=== PATIENT | male | born 1965 | race Caucasian/White ===

== ENCOUNTER → 2019-05-04 | Outpatient (CLI) | payer SELFPAY ==
[~2019-05-04] MED LIST: ACYC-114 PO; ATOR40TA78 PO; FENO160T PO; LISI1TAB20 PO; METH750T2 PO; TRAM50TA2 PO
[2019-05-04 10:19] LABS: BASOPHILS # (AUTO) 0.03 x10^3/uL (0-0.1); BASOPHILS % (AUTO) 0 % (0-1); EOSINOPHILS # (AUTO) 0.28 x10^3/uL (0-0.4); EOSINOPHILS % (AUTO) 4 % (1-7); LYMPHOCYTES # (AUTO) 2.38 x10^3/uL (1-3.4); LYMPHOCYTES % (AUTO) 32 % (22-44); MD NO; MEAN CORPUSCULAR HEMOGLOBIN 32.1 pg (27.5-34.5); MEAN CORPUSCULAR HGB CONC 34.1 g/dL (33.2-36.2); MEAN CORPUSCULAR VOLUME 94.1 fL (81-97); MEAN PLATELET VOLUME 9.1 fL (7.4-10.4); MONOCYTES # (AUTO) 0.57 x10^3/uL (0.2-0.8); MONOCYTES % (AUTO) 8 % (2-9); NEUTROPHILS % (AUTO) 56 % (42-75); PLATELET COUNT 255 x10^3/uL (130-400); RED BLOOD COUNT 4.62 x10^6/uL (4.38-5.82)
[2019-05-04 10:20] LABS: MICROSCOPIC NOT IND
[2019-05-04 10:24] LABS: ANION GAP 5 mmol/L (5-15); CALCIUM 8.9 mg/dL (8.5-10.1); CHLORIDE 109 mmol/L (98-107)
[2019-05-04 10:27] LABS: ALANINE AMINOTRANSFERASE 53 U/L (12-78); ALKALINE PHOSPHATASE 60 U/L (45-117); BILIRUBIN,TOTAL 0.4 mg/dL (0.2-1.0); CREATININE 2.26 mg/dL (0.7-1.3); TOTAL PROTEIN 7.8 g/dL (6.4-8.2)
[2019-05-04 10:27] LABS: CULTURE INDICATED? NO
[2019-05-04 10:50] LABS: INTERNATIONAL NORMALIZED RATIO 0.99 (0.93-1.1); PROTHROMBIN TIME 10.5 Seconds (9.6-11.5)
== END | disposition home or self-care (01) ==
LOC: STAR 09:05
PROVIDERS: ATTEND Neurological Surgery
DX: Z01.818 Encounter for other preprocedural examination (principal); Z01.811 Encounter for preprocedural respiratory examination; Z01.812 Encounter for preprocedural laboratory examination; S33.39XA Dislocation of other parts of lumbar spine and pelvis, initial encounter; M43.06 Spondylolysis, lumbar region; X58.XXXA Exposure to other specified factors, initial encounter; Y93.89 Activity, other specified; Y92.89 Other specified places as the place of occurrence of the external cause; Y99.8 Other external cause status
CPT/HCPCS: 36415; 71046; 72110; 80053; 81003; 85025; 85610; 85730; 93005

== ENCOUNTER 2019-05-12 06:54 | Inpatient (IN) | payer OTHER ==
[~2019-05-12] VITALS: Ht 180.3 cm; Wt 102.5 kg
[~2019-05-12 06:54] MED LIST changes: +BACITRACIN 50,000 UNIT ONE; +THROMBIN 5,000 UNIT VIAL TP ONE
[2019-05-12] MEDS ORDERED: LACTATED RINGERS 1,000 ML IV SCH (07:29)
[2019-05-12] MEDS ORDERED: ACETAMINOPHEN 500 MG TABLET PO ONE (07:30)
[2019-05-12] MEDS ORDERED: OXYcodone IR 5MG TABLET PO ONE (07:30)
[2019-05-12 08:04] LABS: ANION GAP 6 mmol/L (5-15); CHLORIDE 108 mmol/L (98-107); CREATININE 1.75 mg/dL (0.7-1.3)
[2019-05-12] MEDS ORDERED: PROPOFOL 10 MG/ML, 20ML ONE (08:14)
[2019-05-12] MEDS ORDERED: FENTANYL PF 250 MCG/5ML ONE (08:14)
[2019-05-12] MEDS ORDERED: MIDAZOLAM 1 MG/ML, 2ML ONE (08:14)
[2019-05-12] MEDS ORDERED: ROCURONIUM 10MG/ML,5ML ONE (08:14)
[2019-05-12] MEDS ORDERED: PROPOFOL 50 ML ONE ×2 (08:14→10:08)
[2019-05-12] MEDS ORDERED: CEFAZOLIN 1,000 MG ONE ×2 (08:14)
[2019-05-12] MEDS ORDERED: LIDOCAINE-MPF 2% ,5ML ONE ×2 (08:15)
[2019-05-12] MEDS ORDERED: DEXAMETHASONE 4 MG/ML, 1ML ONE ×2 (08:15)
[2019-05-12] MEDS ORDERED: ONDANSETRON 2MG/ML, 2ML ONE (08:15)
[2019-05-12] MEDS ORDERED: ONDANSETRON 2MG/ML, 2ML IV PRN (08:30)
[2019-05-12] MEDS ORDERED: LORazepam 2 MG/ML, 1ML IVPush PRN (08:30)
[2019-05-12] MEDS ORDERED: OXYcodone 5 MG/5 ML ORAL.SOL UDC PO PRN (08:30)
[2019-05-12] MEDS ORDERED: LABETALOL 5MG/ML, 20ML IV PRN ×2 (08:30→14:00)
[2019-05-12] MEDS ORDERED: hydrALAzine 20 MG/ML, 1ML IV PRN (08:30)
[2019-05-12] MEDS ORDERED: FENTANYL PF 100 MCG/2ML ONE (11:00)
[2019-05-12] MEDS ORDERED: OXYcodone 5 MG/5 ML ORAL.SOL UDC ONE (11:00)
[2019-05-12] MEDS ORDERED: HYDROmorphone 1 MG/ML, 1ML INJ ONE ×3 (11:00→11:52)
[2019-05-12] MEDS: FENTANYL PF 100 MCG/2ML IV PRN ×2 (11:01→11:10)
[2019-05-12] MEDS ORDERED: GLYCOPYRROLATE 0.2MG/1ML, 5ML ONE (11:03)
[2019-05-12] MEDS ORDERED: NEOSTIGMINE 1 MG/ML, 10ML ONE (11:03)
[2019-05-12] MEDS: HYDROmorphone 2 MG/ML, 1ML IVPush PRN ×6 (11:15→12:00)
[2019-05-12] MEDS ORDERED: METHOCARBAMOL 1,000 MG in DEXTROSE 5% 100 ML IV ONE (11:30)
[2019-05-12] MEDS ORDERED: MAGNESIUM HYDROXIDE 8%, 30ML UDC PO PRN (14:00)
[2019-05-12] MEDS ORDERED: METOCLOPRAMIDE 5 MG/ML, 2ML IV ONE (14:00)
[2019-05-12] MEDS ORDERED: BISACODYL 10 MG SUPP PR PRN (14:00)
[2019-05-12] MEDS ORDERED: DIPHENHYDRAMINE 25 MG CAPSULE PO PRN (14:00)
[2019-05-12] MEDS ORDERED: DIPHENHYDRAMINE 50 MG/ML, 1ML IVPush PRN (14:00)
[2019-05-12] MEDS: HYDROcodone/APAP 5/325 TABLET PO PRN (15:22)
[2019-05-12 15:26] VITALS: BP 111/79
[2019-05-12] MEDS: D5%-0.9% NACL+KCL 20MEQ 1,000 ML IV SCH (17:40)
[2019-05-12] MEDS: CEFAZOLIN PMX 1GM/50ML 50 ML IVPB SCH (17:40)
[2019-05-12 19:44] VITALS: BP 107/70
[2019-05-12] MEDS ORDERED: METOCLOPRAMIDE 5 MG/ML, 2ML IVPush ONE (20:00)
[2019-05-12] MEDS: ATORVASTATIN 40 MG TABLET PO SCH (20:09)
[2019-05-12] MEDS: ACYCLOVIR 400 MG TABLET PO SCH (20:09)
[2019-05-12] MEDS: FAMOTIDINE 20 MG TABLET PO SCH (20:10)
[2019-05-12] MEDS: OXYcodone IR 5MG TABLET PO PRN (20:12)
[2019-05-13 00:10] VITALS: BP 115/71
[2019-05-13] MEDS: CEFAZOLIN PMX 1GM/50ML 50 ML IVPB SCH ×2 (00:51→20:25)
[2019-05-13] MEDS: OXYcodone IR 5MG TABLET PO PRN ×3 (00:51→20:10)
[2019-05-13] MEDS: HYDROcodone/APAP 5/325 TABLET PO PRN (04:38)
[2019-05-13 05:39] LABS: CHLORIDE 110 mmol/L (98-107)
[2019-05-13 05:45] LABS: BASOPHILS # (AUTO) 0.03 x10^3/uL (0-0.1); BASOPHILS % (AUTO) 0 % (0-1); EOSINOPHILS # (AUTO) 0.02 x10^3/uL (0-0.4); EOSINOPHILS % (AUTO) 0 % (1-7); LYMPHOCYTES # (AUTO) 1.72 x10^3/uL (1-3.4); LYMPHOCYTES % (AUTO) 15 % (22-44); MD NO; MEAN CORPUSCULAR HEMOGLOBIN 31.9 pg (27.5-34.5); MEAN CORPUSCULAR HGB CONC 34.1 g/dL (33.2-36.2); MEAN CORPUSCULAR VOLUME 93.3 fL (81-97); MEAN PLATELET VOLUME 9.2 fL (7.4-10.4); MONOCYTES # (AUTO) 1.02 x10^3/uL (0.2-0.8); MONOCYTES % (AUTO) 9 % (2-9); NEUTROPHILS # (AUTO) 8.38 x10^3/uL (1.8-6.8); NEUTROPHILS % (AUTO) 75 % (42-75); PLATELET COUNT 229 x10^3/uL (130-400); RED BLOOD COUNT 4.04 x10^6/uL (4.38-5.82); RED CELL DISTRIBUTION WIDTH 11.9 % (9.4-14.8)
[2019-05-13 05:59] LABS: ANION GAP 7 mmol/L (5-15); CALCIUM 8.9 mg/dL (8.5-10.1); CREATININE 1.41 mg/dL (0.7-1.3)
[2019-05-13] MEDS ORDERED: BUPIVACAINE/PF-EPI 0.5% 1:200K ONE ×2 (06:01→13:48)
[2019-05-13] MEDS ORDERED: THROMBIN 5,000 UNIT VIAL TP ONE (06:01)
[2019-05-13] MEDS ORDERED: BACITRACIN 50,000 UNIT ONE (06:01)
[2019-05-13] MEDS ORDERED: VANCOMYCIN 1,000 MG ONE (06:01)
[2019-05-13] MEDS: D5%-0.9% NACL+KCL 20MEQ 1,000 ML IV SCH ×3 (06:40→23:20)
[2019-05-13 08:15] VITALS: BP 106/57
[2019-05-13] MEDS: FAMOTIDINE 20 MG TABLET PO SCH ×2 (09:00→20:10)
[2019-05-13] MEDS: ACYCLOVIR 400 MG TABLET PO SCH ×2 (09:00→20:09)
[2019-05-13] MEDS ORDERED: MIDAZOLAM 1 MG/ML, 2ML ONE (12:08)
[2019-05-13] MEDS ORDERED: FENTANYL PF 250 MCG/5ML ONE (12:09)
[2019-05-13] MEDS ORDERED: BUPIVACAINE LIPOSOME/PF 20ML INFIL ONE (13:22)
[2019-05-13] MEDS ORDERED: ROCURONIUM 10MG/ML,5ML ONE (13:32)
[2019-05-13] MEDS ORDERED: SUCCINYLCHOLINE 20 MG/ML, 10ML ONE (13:32)
[2019-05-13] MEDS ORDERED: PROPOFOL 10 MG/ML, 20ML ONE (13:32)
[2019-05-13] MEDS ORDERED: ONDANSETRON 2MG/ML, 2ML ONE (13:32)
[2019-05-13] MEDS ORDERED: DEXAMETHASONE 4 MG/ML, 1ML ONE (13:32)
[2019-05-13] MEDS ORDERED: ONDANSETRON 2MG/ML, 2ML IVPush PRN (14:30)
[2019-05-13] MEDS ORDERED: PROMETHAZINE 25 MG/ML, 1ML IV PRN (14:30)
[2019-05-13] MEDS ORDERED: ALBUTEROL SULFATE 2.5 MG/3 ML NPPB PRN (14:30)
[2019-05-13] MEDS ORDERED: KETOROLAC 30 MG/1 ML IV PRN (14:30)
[2019-05-13] MEDS ORDERED: OXYcodone 5 MG/5 ML ORAL.SOL UDC PO PRN (14:30)
[2019-05-13] MEDS ORDERED: LABETALOL 5MG/ML, 20ML IV PRN (14:30)
[2019-05-13] MEDS ORDERED: hydrALAzine 20 MG/ML, 1ML IV PRN (14:30)
[2019-05-13] MEDS ORDERED: MEPERIDINE/PF 25MG/0.5ML IVPush PRN (14:30)
[2019-05-13] MEDS ORDERED: DIAZEPAM 5 MG/ML, 2ML IV PRN ×2 (14:30)
[2019-05-13] MEDS ORDERED: FENTANYL PF 100 MCG/2ML ONE (15:47)
[2019-05-13] MEDS ORDERED: HYDROmorphone 1 MG/ML, 1ML INJ ONE ×2 (15:48→16:21)
[2019-05-13] MEDS: FENTANYL PF 100 MCG/2ML IV PRN ×2 (15:48→16:00)
[2019-05-13] MEDS ORDERED: OXYcodone 5 MG/5 ML ORAL.SOL UDC ONE (16:03)
[2019-05-13] MEDS: HYDROmorphone 1 MG/ML, 1ML INJ IV PRN ×3 (16:10→16:35)
[2019-05-13] MEDS ORDERED: DIAZEPAM 5 MG/ML, 2ML ONE (16:21)
[2019-05-13 17:05] VITALS: BP 123/83
[2019-05-13] MEDS: morphine SULFATE 10 MG/ML, 1ML IV PRN (17:27)
[2019-05-13] MEDS: LISINOPRIL 20 MG TABLET PO SCH (20:09)
[2019-05-13] MEDS: FENOFIBRATE 145 MG TABLET PO SCH (20:10)
[2019-05-13] MEDS: SENNA/DOCUSATE TABLET PO SCH (20:10)
[2019-05-13] MEDS: ATORVASTATIN 40 MG TABLET PO SCH (20:14)
[2019-05-13] MEDS: ACETAMINOPHEN 325 MG TABLET PO PRN (20:14)
[2019-05-13 20:44] VITALS: BP 139/81
[2019-05-13] MEDS: HYDROCHLOROTHIAZIDE 25 MG TABLET PO SCH (21:00)
[2019-05-14] VITALS: BP 110/60
[2019-05-14] MEDS: ACETAMINOPHEN 325 MG TABLET PO PRN ×3 (00:20→21:48)
[2019-05-14] MEDS: OXYcodone IR 5MG TABLET PO PRN ×6 (00:21→21:44)
[2019-05-14] MEDS: D5%-0.9% NACL+KCL 20MEQ 1,000 ML IV SCH ×3 (00:22→16:00)
[2019-05-14] MEDS: CEFAZOLIN PMX 1GM/50ML 50 ML IVPB SCH (04:08)
[2019-05-14 04:13] VITALS: BP 118/75
[2019-05-14 06:47] VITALS: BP 131/79
[2019-05-14] MEDS: ACYCLOVIR 400 MG TABLET PO SCH ×2 (08:22→20:47)
[2019-05-14] MEDS: LISINOPRIL 20 MG TABLET PO SCH (08:23)
[2019-05-14] MEDS: SENNA/DOCUSATE TABLET PO SCH (08:23)
[2019-05-14] MEDS: HYDROCHLOROTHIAZIDE 25 MG TABLET PO SCH (08:23)
[2019-05-14] MEDS: FAMOTIDINE 20 MG TABLET PO SCH ×2 (08:23→20:47)
[2019-05-14] MEDS: FENOFIBRATE 145 MG TABLET PO SCH (08:30)
[2019-05-14] MEDS: ONDANSETRON 2MG/ML, 2ML IV PRN ×2 (11:54→19:22)
[2019-05-14 13:52] VITALS: BP 108/64
[2019-05-14] MEDS: morphine SULFATE 10 MG/ML, 1ML IV PRN ×2 (15:28→19:22)
[2019-05-14 20:30] VITALS: BP 107/72
[2019-05-14] MEDS: ATORVASTATIN 40 MG TABLET PO SCH (20:47)
[2019-05-15] MEDS: morphine SULFATE 10 MG/ML, 1ML IV PRN ×2 (00:09→04:48)
[2019-05-15 00:14] VITALS: BP 105/68
[2019-05-15] MEDS: D5%-0.9% NACL+KCL 20MEQ 1,000 ML IV SCH ×3 (00:20→15:39)
[2019-05-15] MEDS: OXYcodone IR 5MG TABLET PO PRN ×4 (05:53→21:10)
[2019-05-15] MEDS: ACETAMINOPHEN 325 MG TABLET PO PRN ×3 (06:05→21:09)
[2019-05-15 06:59] VITALS: BP 116/73
[2019-05-15] MEDS: SENNA/DOCUSATE TABLET PO SCH (08:32)
[2019-05-15] MEDS: ACYCLOVIR 400 MG TABLET PO SCH ×2 (08:32→21:10)
[2019-05-15] MEDS: METHOCARBAMOL 750 MG TABLET PO PRN ×2 (08:32→14:50)
[2019-05-15] MEDS: FAMOTIDINE 20 MG TABLET PO SCH ×2 (08:33→21:09)
[2019-05-15] MEDS: DOXYCYCLINE 100MG CAP PO SCH ×2 (08:34→21:47)
[2019-05-15] MEDS: FENOFIBRATE 145 MG TABLET PO SCH (08:34)
[2019-05-15] MEDS: LISINOPRIL 20 MG TABLET PO SCH (08:34)
[2019-05-15] MEDS: HYDROCHLOROTHIAZIDE 25 MG TABLET PO SCH (08:34)
[2019-05-15] MEDS ORDERED: OXYC-307 PO (09:57)
[2019-05-15] MEDS ORDERED: DOXY100T PO (09:57)
[2019-05-15 12:47] VITALS: BP 107/67
[2019-05-15] MEDS ORDERED: SODIUM CHLORIDE 0.9%, 500ML IVBOLUS ONE (18:00)
[2019-05-15 19:32] VITALS: BP 101/69
[2019-05-15] MEDS: ATORVASTATIN 40 MG TABLET PO SCH (21:09)
[2019-05-16] MEDS: D5%-0.9% NACL+KCL 20MEQ 1,000 ML IV SCH ×2 (01:20→09:18)
[2019-05-16 02:13] VITALS: BP 105/68
[2019-05-16] MEDS: OXYcodone IR 5MG TABLET PO PRN ×2 (03:01→07:35)
[2019-05-16 06:29] VITALS: BP 118/78
[2019-05-16] MEDS: LISINOPRIL 20 MG TABLET PO SCH (09:00)
[2019-05-16] MEDS: FENOFIBRATE 145 MG TABLET PO SCH (09:00)
[2019-05-16] MEDS: HYDROCHLOROTHIAZIDE 25 MG TABLET PO SCH (09:00)
[2019-05-16] MEDS: FAMOTIDINE 20 MG TABLET PO SCH (09:00)
[2019-05-16] MEDS: DOXYCYCLINE 100MG CAP PO SCH (09:16)
[2019-05-16] MEDS: SENNA/DOCUSATE TABLET PO SCH (09:16)
[2019-05-16] MEDS: ACYCLOVIR 400 MG TABLET PO SCH (09:17)
[2019-05-16] MEDS: ACETAMINOPHEN 325 MG TABLET PO PRN (09:17)
[2019-05-16] MEDS: METHOCARBAMOL 750 MG TABLET PO PRN (09:17)
== END 2019-05-16 10:16 | disposition home health service (06) | DRG 460 ==
LOC: ORIP 06:54 → 4NE 12:28 → DCLOUNGE 05-16 10:05
PROVIDERS: ADMIT Neurological Surgery; ATTEND Neurological Surgery
PROC: 0SG30A0 Fusion of Lumbosacral Joint with Interbody Fusion Device, Anterior Approach, Anterior Column, Open Approach (ICD-10-PCS; principal; 2019-05-12 10:30)
PROC: 01NB0ZZ Release Lumbar Nerve, Open Approach (ICD-10-PCS; 2019-05-13)
PROC: 01NR0ZZ Release Sacral Nerve, Open Approach (ICD-10-PCS; 2019-05-13)
DX: M51.17 Intervertebral disc disorders with radiculopathy, lumbosacral region (principal); M48.061 Spinal stenosis, lumbar region without neurogenic claudication; M43.17 Spondylolisthesis, lumbosacral region; G89.29 Other chronic pain; I95.1 Orthostatic hypotension
CPT/HCPCS: 36415; 72100; 74018; J3490; 72131; 80048; 85025; 86850; 86900; 95938; 95941; C1713; C9290; G0378; J0690; J1100; J1170; J2250; J2405; J2704; J2710; J3010; J3360; J3370; C1763; C1889; J0330; J2270; J2765; J2800; J3480; J7040; J7120

== ENCOUNTER → 2019-05-22 | Outpatient (CLI) | payer OTHER ==
[~2019-05-22] MED LIST changes: -BACITRACIN 50,000 UNIT ONE; +DOXY100T PO; +OXYC-307 PO; -THROMBIN 5,000 UNIT VIAL TP ONE
== END | disposition home or self-care (01) ==
LOC: CFH 15:10
PROVIDERS: ATTEND Physician Assistant Surgical
DX: I82.401 Acute embolism and thrombosis of unspecified deep veins of right lower extremity (principal)